=== PATIENT | male | born 1985 | race Caucasian/White ===

== ENCOUNTER → 2018-10-25 16:17 | Outpatient (CLI) | payer OTHER, SELFPAY ==
[2018-10-25 17:53] LABS: Add Manual Diff / Slide Review NO; Basophils Absolute Auto 100 /uL (0-100); Basophils Percent Auto 0.8 % (0-2); Eosinophils Absolute Auto 200 /uL (0-450); Hematocrit 45.3 % (41-53); Hemoglobin 15.6 g/dL (13.5-17.5); Lymphocytes Absolute Auto 3300 /uL (1100-4500); Lymphocytes Percent Auto 37.8 % (25-40); Mean Corpuscular HGB Conc 34.5 % (30-36); Mean Corpuscular Hemoglobin 29.9 PG (26-34); Mean Corpuscular Volume 86.6 fL (80-100); Monocytes Absolute Auto 900 /uL (0-900); Monocytes Percent Auto 10.4 % (3-14); Neutrophils Absolute Auto 4200 /uL (1500-7000); Platelet Count 286 X10^3/uL (150-400); Red Blood Cell Count 5.22 X10^6/uL (4.5-5.9); Red Cell Distribution Width 12.4 % (11.6-14.8); White Blood Cell Count 8.6 X10^3/uL (4.5-11.0)
[2018-10-25 18:45] LABS: Alanine Aminotransferase 48 IU/L (21-72); Albumin 4.5 g/dL (3.5-5.0); Albumin Globulin Ratio 1.7 (1.0-2.8); Alkaline Phosphatase 55 U/L (38-126); Aspartate Aminotransferase 30 IU/L (17-59); Bilirubin Total 0.5 mg/dL (0.2-1.3); Blood Urea Nitrogen 16 mg/dL (9-20); Calcium 9.7 mg/dL (8.4-10.2); Carbon Dioxide 29 mmol/L (22-32); Chloride 103 mmol/L (98-107); Cholesterol 197 mg/dL (140-199); Estimated Glomerular Filt Rate > 60.0 mL/min (>60); Globulin 2.7 g/dL (1.7-4.1); Glucose 71 mg/dL (70-100); HDL Cholesterol 54 mg/dL (40-60); HEMOLYSIS < 15 (0-50); LDL Cholesterol Calculated 121 mg/dL (<100); Potassium 4.4 mmol/L (3.4-5.1); Sodium 142 mmol/L (137-145); Total Protein 7.2 g/dL (6.3-8.2); Triglycerides 110 mg/dL (35-150)
== END ==
PROVIDERS: PCP Family Medicine; Visit Provider Family Medicine
DX: I10 Essential (primary) hypertension (principal); R53.83 Other fatigue; E66.01 Morbid (severe) obesity due to excess calories
CPT/HCPCS: 36415; 80053; 80061; 85025

== ENCOUNTER 2024-01-25 16:27 | Emergency (ER) | payer BC, SELFPAY ==
[2024-01-25 16:33] VITALS: BP 125/85; PULSE 80; RESP 16; O2SAT 97; BMI 41.3
[2024-01-25] MEDS: TET,DIPH,PERTUSS(ACELL),VAC/PF 0.5 ML SYRINGE IM (16:43)
--- NOTE | 2024-01-25 19:28 | ED_ITS ---
HPI - Wound/Laceration General Chief Complaint: Wound/Laceration Stated Complaint: Laceration on Abdomen Time Seen by Provider: 01/25/24 18:04 Source: patient Mode of arrival: Ambulatory Limitations: no limitations History of Present Illness HPI narrative: Patient is a 38-year-old male here for evaluation of a laceration to his abdomen. He states that he was using a saw when it kicked back brushed his abdomen. He was concerned about having the wound washed. He was up-to-date on his tetanus. No bleeding. No other injuries from the event. Related Data Allergies Allergy/AdvReac Type Severity Reaction Status Date / Time No Known Drug Allergies Allergy Verified 01/25/24 16:41 Review of Systems Integumentary/Breasts Skin/Breast: Reports system reviewed and no additional complaints, except as documented Exam Initial Vital Signs Initial Vital Signs: Vital Signs Pulse Rate 80 01/25/24 16:33 Respiratory Rate 16 01/25/24 16:33 Blood Pressure 125/85 01/25/24 16:33 Pulse Oximetry 97 01/25/24 16:33 Oxygen Delivery Method Room Air 01/25/24 16:33 Skin Other: Patient with a 5 cm superficial laceration to the right upper portion of the abdomen. No active bleeding. Procedures Laceration Repair Laceration 1: Site: other (Abdomen) Side (If applicable): right Size (cm): 5 Description: linear Depth: simple, single layer Local Anesthetic: lidocaine 1% Amount of anesthesia used (mL): 5 Pre-repair: wound explored and deep structures intact Skin layer closed with: nylon Skin layer suture size: 4-0 Number of sutures: 5 Technique: simple, interrupted Course Orders Ordered: Discontinued Medications Bacitracin (Bacitracin Oint 0.9 Gm Pckt) 1 applic TOP NOW ONE Stop: 01/25/24 19:30 Last Admin: 01/25/24 19:37 Dose: 1 applic Documented By: GC Diphtheria/Tetanus/Acell Pertussis (Tet,Diph,Pertuss(Acell),Vac/Pf 0.5 Ml Syringe) 0.5 ml IM .ONCE ONE Stop: 01/25/24 16:40 Last Admin: 01/25/24 16:43 Dose: 0.5 ml Documented By: CTS Vital Signs Vital signs: Vital Signs - 8 hr 01/25/24 19:40 Temperature 97.5 F L Pulse Rate 70 Respiratory Rate 16 Blood Pressure 124/68 Pulse Oximetry 98 Oxygen Delivery Method Room Air MDM - Wound/Laceration MDM Narrative Medical decision making narrative: Patient had a relatively superficial laceration. I offered options to include stitching versus Steri-Strips and Dermabond. After the discussion the patient o pted for stitching. It was closed as described above. No other injuries from the event. No signs of infection or foreign body. No indication for antibiotics currently. He was given care instructions and return precautions. He expressed understanding and agreement with plan. Discharge Plan Departure Patient Disposition: Home Clinical Impression: Laceration Instructions: DI for Laceration Repair Activity Restrictions/Additional Instructions: The stitches do need to be removed in 7-10 days. Until then you can use topical antibiotic ointment such as Neosporin or bacitracin. You can shower like normal. Return to the emergency department for new symptoms. Referrals: Mau Flanagan MD [Primary Care Provider] - Stand Alone Forms: Patient Portal/API
[2024-01-25] MEDS: BACITRACIN OINT 0.9 GM PCKT 1 APPLIC TOP (19:37)
[2024-01-25 19:40] VITALS: BP 124/68; PULSE 70; RESP 16; TEMP 36.4; O2SAT 98
== END 2024-01-25 19:41 | disposition home or self-care (01) ==
PROVIDERS: Emergency Provider Emergency Medicine; PCP Family Medicine
DX: S31.119A Laceration without foreign body of abdominal wall, unspecified quadrant without penetration into peritoneal cavity, initial encounter (principal); W27.0XXA Contact with workbench tool, initial encounter; Z23 Encounter for immunization
CPT/HCPCS: 12002; 90471; 99283; 90715